=== PATIENT | male | born 1975 | race Caucasian/White ===

== ENCOUNTER 2022-11-20 08:25 | Outpatient (CLI) | payer BC, SELFPAY ==
[2022-11-20 09:34] LABS: Basophils % 0.5 %; Eosinophils # 0.3 10^3/uL (0.0-0.8); Eosinophils % 3.2 %; Hematocrit 47.4 % (42.0-52.0); Hemoglobin 15.1 g/dL (11.7-16.6); Lymphocytes % 33.9 %; Mean Corpuscular HGB Conc 31.9 g/dL (30.0-36.0); Mean Corpuscular Hemoglobin 28.8 pg (28.0-34.0); Mean Corpuscular Volume 90.5 fl (80-94); Mean Platelet Volume 10.3 fL (7.4-10.4); Monocytes # 0.8 10^3/uL (0.2-0.9); Monocytes % 8.9 %; Neutrophils # 4.68 10^3/uL (1.8-7.7); Neutrophils % 52.8 %; Nucleated Red Blood Cells % 0 %; Platelet Count 239 10^3/cmm (130-400); Red Blood Count 5.24 10^6/uL (4.1-5.3); White Blood Count 8.9 10^3/uL (4.0-10.0)
[2022-11-20 09:53] LABS: Estmated Average Glucose 114; Hemoglobin A1C 5.6 % (4.0-6.0)
[2022-11-20 10:03] LABS: Alanine Aminotransferase 34 U/L (0-41); Albumin Level 4.1 g/dL (3.5-5.2); Alkaline Phosphatase 30 U/L (40-130); Anion Gap 13.9 (5-19); Aspartate Amino Transferase 24 U/L (0-40); Blood Urea Nitrogen 13 mg/dL (6-20); Calcium 8.8 mg/dL (8.5-10.5); Carbon Dioxide 26 mmol/L (22-29); Chloride 104 mmol/L (98-107); Free T4 Free Thyroxine 1.05 ng/dL (0.82-1.77); Globulin 2.7 g/dL (1.3-4.6); Glomerular Filtration Rate 89.7 mL/min (90-130); Glucose 95 mg/dL (65-115); Osmolality Calculated 290 mOsm/kg (285-295); Potassium 3.9 mmol/L (3.5-5.1); Prostate Specific Antigen Scr 0.88 ng/mL (0-4); Sodium 140 mmol/L (136-145); Testosterone Total 965.4 ng/dL (249-836); Thyroid Stimulating Hormone 0.39 uIU/mL (0.27-4.20); Total Bilirubin 0.4 mg/dL (0.15-1.2); Total Protein 6.8 g/dL (6.6-8.7)
[2022-11-20 10:04] LABS: Cortisol Random 8.88 ug/dL (2.47-19.5)
[2022-11-20 10:34] LABS: Prolactin 19.26 ng/mL (4.0-15.2)
[2022-11-29 13:59] LABS: IGF1 LC/MS 225 ng/mL (52-328)
== END 2022-11-20 08:26 | disposition home or self-care (01) ==
PROVIDERS: PCP Family Medicine; Visit Provider Internal Medicine
DX: L73.2 Hidradenitis suppurativa (principal); E29.1 Testicular hypofunction; R79.89 Other specified abnormal findings of blood chemistry
CPT/HCPCS: 36415; 80053; 82533; 83036; 84146; 84305; 84403; 84439; 84443; 85025; G0103

== ENCOUNTER 2022-12-05 09:37 | Outpatient (CLI) | payer BC, SELFPAY ==
--- NOTE | 2022-12-05 | CT_ITS ---
WS: [id number] CT ABDOMEN PELVIS TECHNIQUE: Noncontrast CT of the abdomen and contrast-enhanced CT of the abdomen and pelvis with ashley nal and sagittal reformatted images. CLINICAL INFORMATION: MICROHEMATURIA COMPARISON: None. DLP: 3951.[address] scans at [facility] use at least one of these dose optimization techniques: automated e xposure control; mA and/or kV adjustment per patient size (includes targeted exams where dose is matc hed to clinical indication); or iterative reconstruction. FINDINGS: Small RIGHT greater than LEFT nonobstructing calyceal tip calculi. 4.3 mm nonobstructing RIGHT renal pelvic calculus. RIGHT adrenal gland is normal. Fatty lesion LEFT adrenal gland compatible with adren al myelolipoma measuring 1.5 cm. No obstructing renal or ureteral calculi. Normal corticomedullary en hancement. Normal excretion on the delayed images. Normal filling of the bladder. Prostate measures 4 .5 CM. Small bilateral renal cysts. A few tiny noncalcified nodules in the lung bases. A few calcified granu miguel in the lung bases. This can be followed up with chest CT. Mild diffuse fatty infiltration liver. Normal spleen. Small esophageal hiatal hernia. Normal pancreat ic parenchymal enhancement. Normal caliber abdominal aorta. Celiac and SMA are patent. Tiny fat-containing umbilical hernia. Moderate spondylitic changes lumbar spine. Disc space narrowing worse L5-S1. CT/CT abdomen pelvis wo/w [id number] IMPRESSION: 1. No obstructing renal or ureteral calculi. 2. Normal ureteral excretion. Normal filling of the bladder. 3. Small nonobstructing renal calculi RIGHT greater than LEFT largest measurin g 4.3 mm RIGHT renal pelvis 4. Small bilateral renal cysts. 5. Small esophageal hiatal hernia. 6. A few tiny nodules in the lung bases. This can be followed up with chest CT in 6 months. 7. No other suspicious findings.
[2022-12-05] MEDS: iohexol 350 mg/mL 500 mL Btl (per mL) IV (10:39)
== END 2022-12-05 09:38 | disposition home or self-care (01) ==
PROVIDERS: PCP Family Medicine; Visit Provider Urology
DX: R31.21 Asymptomatic microscopic hematuria (principal); N20.0 Calculus of kidney; N28.1 Cyst of kidney, acquired; K44.9 Diaphragmatic hernia without obstruction or gangrene; R91.8 Other nonspecific abnormal finding of lung field
CPT/HCPCS: 74178; Q9967

== ENCOUNTER 2022-12-19 09:07 | Outpatient (CLI) | payer BC, SELFPAY ==
[2022-12-19 09:57] LABS: Testosterone Total 937.8 ng/dL (249-836)
== END 2022-12-19 09:08 | disposition home or self-care (01) ==
PROVIDERS: PCP Family Medicine; Visit Provider Internal Medicine
DX: R79.89 Other specified abnormal findings of blood chemistry (principal); R89.1 Abnormal level of hormones in specimens from other organs, systems and tissues
CPT/HCPCS: 84403

== ENCOUNTER 2023-01-08 10:49 | Outpatient (CLI) | payer BC, SELFPAY ==
--- NOTE | 2023-01-08 11:00 | MR_ITS ---
WS: [id number] MRI HEAD WITHOUT AND WITH GADOLINIUM ENHANCEMENT WITH ATTENTION TO THE PITUITARY TECHNIQUE: Sagittal T1, T2 axial, T2 axial FLAIR, axial susceptibility weighted imaging, axial diffus ion weighted images, and coronal T2 images were obtained. Pre and post-T1 axial and post T1 coronal i mages. ADC and FSPGR images. High-resolution pre and postgadolinium pituitary imaging with dynamic pr otocol CLINICAL INFORMATION: prolactin increased COMPARISON: None. FINDINGS: Normal optic chiasm and pituitary infundibulum. Temporal lobes and hippocampal formations a re normal in appearance. Normal homogeneous pituitary enhancement. No evidence of sellar or suprasell ar mass. No evidence of hypoenhancing pituitary microadenoma on the dynamic imaging. Pituitary is nor mal in appearance. No abnormal gadolinium enhancement. Normal dural venous sinuses. No evidence of restricted diffusion to suggest acute ischemia. Ventricular system and basal cisterns are patent. Normal vascular flow voids at the skull base. No extra-axial fluid collections. No eviden ce of mass or mass effect. Paranasal sinuses and mastoid air cells are well aerated. No suspicious in tracranial signal abnormalities. Normal mckeon-white differentiation. Normal posterior nasopharynx. Nor mal parapharyngeal fat. No hemosiderin on susceptibly weighted images MR/MR pituitary wo/w con* [id number] IMPRESSION: 1. Normal optic chiasm and pituitary infundibulum. Sella is normal in appearan ce. 2. No evidence of pituitary microadenoma on the post gadolinium dynamic imagin g. No evidence of sellar or suprasellar mass. 3. Normal cavernous sinuses and Meckel's cave. 4. No restricted diffusion to suggest acute ischemia. 5. No suspicious intracranial signal abnormalities. 6. Paranasal sinuses and mastoid air cells well aerated.
[2023-01-08] MEDS: gadobenate dimeglumine 20 mL vial IV (12:14)
== END 2023-01-08 10:50 | disposition home or self-care (01) ==
PROVIDERS: PCP Family Medicine; Visit Provider Internal Medicine
DX: R79.89 Other specified abnormal findings of blood chemistry (principal); L73.2 Hidradenitis suppurativa
CPT/HCPCS: 70553; A9577

== ENCOUNTER 2023-03-10 08:44 | Outpatient (CLI) | payer BC, SELFPAY ==
[2023-03-10 09:05] LABS: Basophils % 0.5 %; Eosinophils # 0.2 10^3/uL (0.0-0.8); Eosinophils % 2.1 %; Lymphocytes # 4.7 10^3/uL (0.8-4.8); Lymphocytes % 57.1 %; Mean Corpuscular HGB Conc 33.6 g/dL (30-55); Mean Corpuscular Hemoglobin 28.7 pg (27-33); Mean Corpuscular Volume 85.4 fl (82-101); Mean Platelet Volume 9.6 fL (7.4-10.4); Monocytes # 0.7 10^3/uL (0.2-0.9); Monocytes % 8.1 %; Neutrophils # 2.63 10^3/uL (1.8-7.7); Neutrophils % 31.7 %; Nucleated Red Blood Cells % 0 %; Platelet Count 228 10^3/cmm (157-399); Red Blood Count 4.92 10^6/uL (3.85-5.65); Red Cell Distribution Width 12.9 % (12.1-15.1); White Blood Count 8.28 10^3/uL (3.29-11.43)
[2023-03-10 09:23] LABS: Alanine Aminotransferase 53 U/L (0-41); Albumin Level 4.3 g/dL (3.5-5.2); Alkaline Phosphatase 43 U/L (40-130); Blood Urea Nitrogen 16 mg/dL (6-20); Calcium 9.2 mg/dL (8.5-10.5); Carbon Dioxide 24 mmol/L (22-29); Chloride 101 mmol/L (98-107); Chol HDL Ratio 5.05 mg/dL (1.0-5.00); Cholesterol 192 mg/dL (0-200); Globulin 2.9 g/dL (1.3-4.6); Glomerular Filtration Rate 89.7 mL/min (90-130); Glucose 245 mg/dL (65-115); HDL Cholesterol 38 mg/dL (60-100); LDL Cholesterol Calculated 110 mg/dL (50-129); LDL HDL Ratio 2.89 RATIO (0.00-3.22); Osmolality Calculated 297 mOsm/kg (285-295); Sodium 139 mmol/L (136-145); Total Bilirubin 0.3 mg/dL (0.15-1.2); Total Protein 7.2 g/dL (6.6-8.7); Triglycerides 219 mg/dL (0-150)
[2023-03-10 09:24] LABS: Anion Gap 17.9 (5-19); Potassium 3.9 mmol/L (3.5-5.1)
[2023-03-10 09:30] LABS: Testosterone Total 293.8 ng/dL (249-836)
[2023-03-10 09:49] LABS: Aspartate Amino Transferase 29 U/L (0-40)
[2023-03-10 09:57] LABS: Prolactin 14.24 ng/mL (4.0-15.2)
== END 2023-03-10 08:45 | disposition home or self-care (01) ==
LOC: LAB 08:46
PROVIDERS: PCP Family Medicine; Visit Provider Internal Medicine
DX: E29.1 Testicular hypofunction (principal); R79.89 Other specified abnormal findings of blood chemistry
CPT/HCPCS: 36415; 80053; 80061; 84146; 84403; 85025

== ENCOUNTER 2023-06-09 08:40 | Outpatient (CLI) | payer BC, SELFPAY ==
[2023-06-09 09:44] LABS: Basophils % 0.3 %; Eosinophils # 0.2 10^3/uL (0.0-0.8); Eosinophils % 2.3 %; Hematocrit 46.5 % (37-53); Lymphocytes # 4.7 10^3/uL (0.8-4.8); Lymphocytes % 45.1 %; Mean Corpuscular HGB Conc 33.3 g/dL (30-55); Mean Corpuscular Hemoglobin 29.9 pg (27-33); Mean Corpuscular Volume 89.6 fl (82-101); Mean Platelet Volume 9.7 fL (7.4-10.4); Monocytes # 0.8 10^3/uL (0.2-0.9); Neutrophils # 4.54 10^3/uL (1.8-7.7); Neutrophils % 43.9 %; Nucleated Red Blood Cells % 0 %; Platelet Count 252 10^3/cmm (157-399); Red Blood Count 5.19 10^6/uL (3.85-5.65); Red Cell Distribution Width 13.3 % (12.1-15.1); White Blood Count 10.34 10^3/uL (3.29-11.43)
[2023-06-09 09:52] LABS: Alanine Aminotransferase 37 U/L (0-41); Albumin Level 4.3 g/dL (3.5-5.2); Alkaline Phosphatase 34 U/L (40-130); Anion Gap 13.5 (5-19); Aspartate Amino Transferase 24 U/L (0-40); Blood Urea Nitrogen 13 mg/dL (6-20); Calcium 8.8 mg/dL (8.5-10.5); Carbon Dioxide 25 mmol/L (22-29); Chloride 105 mmol/L (98-107); Chol HDL Ratio 4.66 mg/dL (1.0-5.00); Cholesterol 163 mg/dL (0-200); Globulin 2.6 g/dL (1.3-4.6); Glomerular Filtration Rate 71.1 mL/min (90-130); Glucose 111 mg/dL (65-115); HDL Cholesterol 35 mg/dL (60-100); LDL Cholesterol Calculated 109 mg/dL (50-129); LDL HDL Ratio 3.11 RATIO (0.00-3.22); Osmolality Calculated 291 mOsm/kg (285-295); Potassium 3.5 mmol/L (3.5-5.1); Sodium 140 mmol/L (136-145); Total Bilirubin 0.4 mg/dL (0.15-1.2); Total Protein 6.9 g/dL (6.6-8.7); Triglycerides 93 mg/dL (0-150)
[2023-06-09 09:57] LABS: Testosterone Total 594.4 ng/dL (249-836)
[2023-06-09 10:42] LABS: Estmated Average Glucose 108; Hemoglobin A1C 5.4 % (4.0-6.0)
[2023-06-09 11:53] LABS: Prolactin 28.46 ng/mL (4.0-15.2)
== END 2023-06-09 08:41 | disposition home or self-care (01) ==
LOC: LAB 08:41
PROVIDERS: PCP Family Medicine; Visit Provider Internal Medicine
DX: E29.1 Testicular hypofunction (principal); R79.89 Other specified abnormal findings of blood chemistry; Z79.899 Other long term (current) drug therapy
CPT/HCPCS: 36415; 80053; 80061; 83036; 84146; 84403; 85025

== ENCOUNTER 2023-09-12 09:01 | Outpatient (CLI) | payer BC, SELFPAY ==
[2023-09-12 09:26] LABS: Basophils % 0.3 %; Eosinophils # 0.2 10^3/uL (0.0-0.8); Hematocrit 45.2 % (37-53); Lymphocytes # 3.4 10^3/uL (0.8-4.8); Lymphocytes % 35.1 %; Mean Corpuscular HGB Conc 34.3 g/dL (30-55); Mean Corpuscular Hemoglobin 29.5 pg (27-33); Mean Corpuscular Volume 86.1 fl (82-101); Monocytes # 0.8 10^3/uL (0.2-0.9); Monocytes % 8.8 %; Neutrophils # 5.12 10^3/uL (1.8-7.7); Neutrophils % 53.3 %; Nucleated Red Blood Cells % 0 %; Platelet Count 262 10^3/cmm (157-399); Red Blood Count 5.25 10^6/uL (3.85-5.65); Red Cell Distribution Width 13.3 % (12.1-15.1)
[2023-09-12 09:52] LABS: Alanine Aminotransferase 32 U/L (0-41); Albumin Level 4.4 g/dL (3.5-5.2); Alkaline Phosphatase 35 U/L (40-130); Anion Gap 17.9 (5-19); Aspartate Amino Transferase 23 U/L (0-40); Blood Urea Nitrogen 19 mg/dL (6-20); Calcium 9.5 mg/dL (8.5-10.5); Carbon Dioxide 25 mmol/L (22-29); Chloride 104 mmol/L (98-107); Chol HDL Ratio 4.37 mg/dL (1.0-5.00); Cholesterol 153 mg/dL (0-200); Globulin 2.8 g/dL (1.3-4.6); Glomerular Filtration Rate 79.4 mL/min (90-130); Glucose 97 mg/dL (65-115); HDL Cholesterol 35 mg/dL (60-100); LDL Cholesterol Calculated 97 mg/dL (50-129); LDL HDL Ratio 2.77 RATIO (0.00-3.22); Osmolality Calculated 298 mOsm/kg (285-295); Potassium 3.9 mmol/L (3.5-5.1); Sodium 143 mmol/L (136-145); Total Bilirubin 0.3 mg/dL (0.15-1.2); Total Protein 7.2 g/dL (6.6-8.7); Triglycerides 107 mg/dL (0-150)
[2023-09-12 09:56] LABS: Estmated Average Glucose 103; Hemoglobin A1C 5.2 % (4.0-6.0)
[2023-09-12 09:59] LABS: Testosterone Total 764.7 ng/dL (249-836)
[2023-09-12 10:40] LABS: Prolactin 24.61 ng/mL (4.0-15.2)
== END 2023-09-12 09:02 | disposition home or self-care (01) ==
LOC: LAB 09:02
PROVIDERS: PCP Family Medicine; Visit Provider Internal Medicine
DX: E29.1 Testicular hypofunction (principal); R79.89 Other specified abnormal findings of blood chemistry
CPT/HCPCS: 36415; 80053; 80061; 83036; 84146; 84403; 85025

== ENCOUNTER 2024-01-12 10:01 | Outpatient (CLI) | payer BC, SELFPAY ==
[2024-01-12 10:46] LABS: Basophils # 0.1 10^3/uL (0.0-0.1); Basophils % 0.7 %; Eosinophils # 0.2 10^3/uL (0.0-0.8); Eosinophils % 2.9 %; Hematocrit 49.8 % (37-53); Lymphocytes # 2.6 10^3/uL (0.8-4.8); Lymphocytes % 32.1 %; Mean Corpuscular HGB Conc 32.7 g/dL (30-55); Mean Corpuscular Hemoglobin 29.1 pg (27-33); Mean Corpuscular Volume 88.8 fl (82-101); Monocytes # 0.7 10^3/uL (0.2-0.9); Monocytes % 9.1 %; Neutrophils # 4.43 10^3/uL (1.8-7.7); Neutrophils % 54.3 %; Nucleated Red Blood Cells % 0 %; Platelet Count 260 10^3/cmm (157-399); Red Blood Count 5.61 10^6/uL (3.85-5.65); Red Cell Distribution Width 13.6 % (12.1-15.1); White Blood Count 8.16 10^3/uL (3.29-11.43)
[2024-01-12 11:08] LABS: Creatinine Urine, Random 341 mg/dL (39-259); Microalbumin Random Urine 27 ug/dL (0-20)
[2024-01-12 11:14] LABS: Microalbum Creatinine Ratio Ur 79 mg/dL (0-20)
[2024-01-12 11:14] LABS: Alanine Aminotransferase 30 U/L (0-41); Albumin Level 4.2 g/dL (3.5-5.2); Alkaline Phosphatase 32 U/L (40-130); Anion Gap 14.6 (5-19); Aspartate Amino Transferase 21 U/L (0-40); Blood Urea Nitrogen 16 mg/dL (6-20); Calcium 9.1 mg/dL (8.5-10.5); Carbon Dioxide 25 mmol/L (22-29); Chloride 104 mmol/L (98-107); Chol HDL Ratio 4.69 mg/dL (1.0-5.00); Cholesterol 164 mg/dL (0-200); Globulin 3.2 g/dL (1.3-4.6); Glomerular Filtration Rate 70.9 mL/min (90-130); Glucose 93 mg/dL (65-115); HDL Cholesterol 35 mg/dL (60-100); LDL Cholesterol Calculated 113 mg/dL (50-129); LDL HDL Ratio 3.23 RATIO (0.00-3.22); Osmolality Calculated 291 mOsm/kg (285-295); Potassium 3.6 mmol/L (3.5-5.1); Prolactin 23.12 ng/mL (4.0-15.2); Prostate Specific Antigen Scr 1.36 ng/mL (0-4); Sodium 140 mmol/L (136-145); Total Bilirubin 0.4 mg/dL (0.15-1.2); Total Protein 7.4 g/dL (6.6-8.7); Triglycerides 78 mg/dL (0-150)
[2024-01-12 11:36] LABS: Estmated Average Glucose 105; Hemoglobin A1C 5.3 % (4.0-6.0)
[2024-01-12 11:38] LABS: Testosterone Total 832.8 ng/dL (193-740)
== END 2024-01-12 10:02 | disposition home or self-care (01) ==
LOC: LAB 10:04
PROVIDERS: PCP Family Medicine; Visit Provider Internal Medicine
DX: E29.1 Testicular hypofunction (principal); R79.89 Other specified abnormal findings of blood chemistry
CPT/HCPCS: 36415; 80053; 80061; 82044; 83036; 84146; 84403; 85025; G0103

== ENCOUNTER 2024-01-15 08:46 | Outpatient (CLI) | payer BC, SELFPAY ==
[2024-01-19 13:13] LABS: Quantiferon Mitogen 6.63 IU/mL; Quantiferon Nil 0.03 IU/mL; Quantiferon Plus TB1 0.03 IU/mL; Quantiferon Plus TB2 0.02 IU/mL; Quantiferon TB Gold NEGATIVE (NEGATIVE)
== END 2024-01-15 08:47 | disposition home or self-care (01) ==
LOC: LAB 08:55
PROVIDERS: PCP Family Medicine; Visit Provider Dermatology
DX: L03.312 Cellulitis of back [any part except buttock and flank] (principal)
CPT/HCPCS: 36415; 86480

== ENCOUNTER 2024-02-02 09:07 | Outpatient (CLI) | payer BC, SELFPAY ==
[2024-02-02 10:14] LABS: Testosterone Total 314.4 ng/dL (193-740)
== END 2024-02-02 09:08 | disposition home or self-care (01) ==
LOC: LAB 09:09
PROVIDERS: PCP Family Medicine; Visit Provider Internal Medicine
DX: E29.1 Testicular hypofunction (principal); R79.89 Other specified abnormal findings of blood chemistry
CPT/HCPCS: 36415; 84403

== ENCOUNTER 2024-07-27 15:29 | Outpatient (CLI) | payer BC, SELFPAY ==
[2024-07-27 15:54] LABS: Basophils # 0.1 10^3/uL (0.0-0.1); Basophils % 0.6 %; Eosinophils # 0.2 10^3/uL (0.0-0.8); Eosinophils % 2.2 %; Hematocrit 48.9 % (37-53); Lymphocytes # 4.5 10^3/uL (0.8-4.8); Lymphocytes % 44.6 %; Mean Corpuscular HGB Conc 33.5 g/dL (30-55); Mean Corpuscular Hemoglobin 29.1 pg (27-33); Mean Corpuscular Volume 86.7 fl (82-101); Mean Platelet Volume 9.8 fL (7.4-10.4); Monocytes # 0.8 10^3/uL (0.2-0.9); Monocytes % 7.9 %; Neutrophils # 4.44 10^3/uL (1.8-7.7); Neutrophils % 44.2 %; Nucleated Red Blood Cells % 0 %; Platelet Count 267 10^3/cmm (157-399); Red Blood Count 5.64 10^6/uL (3.85-5.65); Red Cell Distribution Width 12.9 % (12.1-15.1); White Blood Count 10.04 10^3/uL (3.29-11.43)
[2024-07-27 16:23] LABS: Testosterone Total 662.3 ng/dL (193-740)
[2024-07-27 19:11] LABS: Estradiol 72.7 pg/mL (7.63-42.6); Prolactin 27.96 ng/mL (4.0-15.2)
== END 2024-07-27 15:30 | disposition home or self-care (01) ==
LOC: LAB 15:33
PROVIDERS: PCP Family Medicine; Visit Provider Internal Medicine
DX: R79.89 Other specified abnormal findings of blood chemistry (principal)
CPT/HCPCS: 36415; 82670; 84146; 84403; 85025

== ENCOUNTER 2024-11-15 09:40 | Outpatient (CLI) | payer BC, SELFPAY ==
[2024-11-15 10:58] LABS: Basophils # 0.1 10^3/uL (0.0-0.1); Basophils % 0.5 %; Eosinophils # 0.2 10^3/uL (0.0-0.8); Eosinophils % 2.3 %; Hematocrit 49.2 % (37-53); Lymphocytes # 4.2 10^3/uL (0.8-4.8); Lymphocytes % 39.7 %; Mean Corpuscular HGB Conc 33.5 g/dL (30-55); Mean Corpuscular Hemoglobin 29.5 pg (27-33); Monocytes # 0.8 10^3/uL (0.2-0.9); Monocytes % 7.7 %; Neutrophils # 5.23 10^3/uL (1.8-7.7); Neutrophils % 49.4 %; Nucleated Red Blood Cells % 0 %; Platelet Count 235 10^3/cmm (157-399); Red Blood Count 5.59 10^6/uL (3.85-5.65); White Blood Count 10.56 10^3/uL (3.29-11.43)
[2024-11-15 11:32] LABS: Alanine Aminotransferase 28 U/L (0-41); Albumin Level 4.2 g/dL (3.5-5.2); Alkaline Phosphatase 31 U/L (40-130); Anion Gap 14.4 (5-19); Aspartate Amino Transferase 21 U/L (0-40); Blood Urea Nitrogen 19 mg/dL (6-20); Carbon Dioxide 27 mmol/L (22-29); Chloride 103 mmol/L (98-107); Globulin 3.1 g/dL (1.3-4.6); Glomerular Filtration Rate 70.6 mL/min (90-130); Glucose 79 mg/dL (65-115); Osmolality Calculated 293 mOsm/kg (285-295); Potassium 3.4 mmol/L (3.5-5.1); Sodium 141 mmol/L (136-145); Total Bilirubin 0.6 mg/dL (0.15-1.2); Total Protein 7.3 g/dL (6.6-8.7)
[2024-11-15 11:54] LABS: Prolactin 29.86 ng/mL (4.0-15.2)
== END 2024-11-15 09:41 | disposition home or self-care (01) ==
PROVIDERS: PCP Family Medicine; Visit Provider Internal Medicine
DX: R79.89 Other specified abnormal findings of blood chemistry (principal)
CPT/HCPCS: 36415; 80053; 84146; 84154; 84403; 85025

== ENCOUNTER 2024-11-30 07:09 | Outpatient (CLI) | payer BC, SELFPAY ==
[2024-11-30 08:17] LABS: Testosterone Total 826.5 ng/dL (193-740)
== END 2024-11-30 07:10 | disposition home or self-care (01) ==
PROVIDERS: PCP Family Medicine; Visit Provider Internal Medicine
DX: R79.89 Other specified abnormal findings of blood chemistry (principal)
CPT/HCPCS: 36415; 84403

== ENCOUNTER 2024-12-13 11:18 | Outpatient (CLI) | payer BC, SELFPAY ==
[2024-12-13 13:09] LABS: Testosterone Total 345.6 ng/dL (193-740)
== END 2024-12-13 11:19 | disposition home or self-care (01) ==
PROVIDERS: PCP Family Medicine; Visit Provider Internal Medicine
DX: R79.89 Other specified abnormal findings of blood chemistry (principal); L73.2 Hidradenitis suppurativa
CPT/HCPCS: 36415; 84403

== ENCOUNTER 2025-01-14 08:44 | Outpatient (CLI) | payer BC, SELFPAY ==
[2025-01-14 09:40] LABS: Hematocrit 45.6 % (37-53); Hemoglobin 15.30 g/dL (11.27-16.99); Mean Corpuscular HGB Conc 33.6 g/dL (30-55); Mean Corpuscular Hemoglobin 29.3 pg (27-33); Mean Corpuscular Volume 87.4 fl (82-101); Nucleated Red Blood Cells % 0 %; Platelet Count 226 10^3/cmm (157-399); Red Blood Count 5.22 10^6/uL (3.85-5.65); White Blood Count 9.73 10^3/uL (3.29-11.43)
[2025-01-14 10:19] LABS: Alanine Aminotransferase 29 U/L (0-41); Albumin Level 4.2 g/dL (3.5-5.2); Alkaline Phosphatase 30 U/L (40-130); Anion Gap 17.6 (5-19); Aspartate Amino Transferase 20 U/L (0-40); Blood Urea Nitrogen 25 mg/dL (6-20); Calcium 9.4 mg/dL (8.5-10.5); Carbon Dioxide 24 mmol/L (22-29); Chloride 102 mmol/L (98-107); Globulin 3.1 g/dL (1.3-4.6); Glucose 99 mg/dL (65-115); Osmolality Calculated 294 mOsm/kg (285-295); Potassium 3.6 mmol/L (3.5-5.1); Sodium 140 mmol/L (136-145); Total Protein 7.3 g/dL (6.6-8.7)
== END 2025-01-14 08:45 | disposition home or self-care (01) ==
PROVIDERS: PCP Family Medicine; Visit Provider Internal Medicine
DX: R79.89 Other specified abnormal findings of blood chemistry (principal); L73.2 Hidradenitis suppurativa
CPT/HCPCS: 36415; 80053; 84146; 84403; 85025

== ENCOUNTER 2025-04-18 09:39 | Outpatient (CLI) | payer BC, SELFPAY ==
[2025-04-18 11:14] LABS: Hematocrit 45.3 % (37-53); Hemoglobin 15.20 g/dL (11.27-16.99); Mean Corpuscular HGB Conc 33.6 g/dL (30-55); Mean Corpuscular Hemoglobin 29.6 pg (27-33); Mean Corpuscular Volume 88.3 fl (82-101); Nucleated Red Blood Cells % 0 %; Platelet Count 265 10^3/cmm (157-399); Red Blood Count 5.13 10^6/uL (3.85-5.65); White Blood Count 7.46 10^3/uL (3.29-11.43)
[2025-04-18 11:46] LABS: Alanine Aminotransferase 21 U/L (0-41); Albumin Level 4.3 g/dL (3.5-5.2); Alkaline Phosphatase 32 U/L (40-130); Anion Gap 14.5 (5-19); Aspartate Amino Transferase 18 U/L (0-40); Blood Urea Nitrogen 22 mg/dL (6-20); Calcium 9.2 mg/dL (8.5-10.5); Carbon Dioxide 26 mmol/L (22-29); Chloride 102 mmol/L (98-107); Globulin 3.0 g/dL (1.3-4.6); Glucose 98 mg/dL (65-115); Osmolality Calculated 291 mOsm/kg (285-295); Potassium 3.5 mmol/L (3.5-5.1); Sodium 139 mmol/L (136-145); Total Protein 7.3 g/dL (6.6-8.7)
== END 2025-04-18 09:40 | disposition home or self-care (01) ==
PROVIDERS: PCP Family Medicine; Visit Provider Internal Medicine
DX: L73.2 Hidradenitis suppurativa (principal); R79.89 Other specified abnormal findings of blood chemistry; E29.1 Testicular hypofunction; E11.9 Type 2 diabetes mellitus without complications
CPT/HCPCS: 36415; 80053; 84146; 84403; 85025